=== PATIENT | male | born 1995 | race Hispanic/Latino ===

== ENCOUNTER 2017-03-28 03:27 | Inpatient (IN) | payer MEDICAID, OTHER ==
[~2017-03-28] VITALS: Ht 154.9 cm; Wt 47.7 kg
[2017-03-28] MEDS ORDERED: Magnesium Hydroxide 10 mL Oral Concentration PO PRN (10:45)
[2017-03-28] MEDS ORDERED: Alum-Mag Hydrox-Simeth 30 mL Suspension PO PRN (10:45)
[2017-03-28] MEDS ORDERED: Benzocaine-Menthol Lozenge 2/Pkg PO PRN (10:45)
[2017-03-28] MEDS: OLANZapine Zydis ODT 5 mg Tablet PO PRN (13:06)
[2017-03-28] MEDS: hydrOXYzine Pamoate 25 mg Capsule PO PRN (13:06)
--- NOTE | 2017-03-28 15:12 | NUR ---
Admit Note Involuntary admit arrived from [facility] by ambulance @ 1021. Detained as GD, DO; refer to usp paperwork. Upon arrival pt presented w/ a constricted & guarded affect. He signed all admission paperwork. He denied thoughts of harm to self or others. After arrival pt vomited yellow bile x 3. Pt showered, was unable to eat lunch. He called his mother and laid down to rest d/t not feeling well. He was offered and accepted Zyprexa Zydis 10mg po prn and Vistaril 50mg po prn @ 1306. Medication appears helpful. No further bouts of vomiting since pt laid down to rest. He has maintained behavioral control and cooperating with care. Addendum: 03/28/17 at 1744 by KARYNA BENNETT RN Pt awoke from his nap reporting he felt better. He has eaten his dinner with no more c/o N/V. Pleasant and cooperative upon interaction.
--- NOTE | 2017-03-28 15:57 | HP ---
[address] [address] HISTORY AND PHYSICAL PATIENT: IMMANUEL JOE : 1995 MR#: [id number] ADMIT: 03/28/2017 JOB ID: [id number] IDENTIFICATION OF PATIENT: The patient is a 21-year-old male from [place]. The patient was admitted under PARIS status due to concerns of grave disability and significant manifestations of psychoses. CHIEF COMPLAINT: "My mother and father were concerned." This per patient report. HISTORY OF PRESENT ILLNESS: As stated above, the patient is a 21-year-old male who reportedly was brought to the emergency department in [place] with significant concern of increasing paranoia, delusions of reference including a belief that someone is controlling him. Per report, the patient identified that he has been smoking 1-2 bowls of marijuana per day over the past month. Prior to such, he was using one pipe per day. He indicated that he does not believe that he is experiencing auditory hallucinations but he appeared to be responding to internal stimulus throughout the examination. He was quite sedate and had received doses of Zyprexa. The patient reportedly has been hospitalized in the past in October of 2015 at [facility]. Records will be sent for. There was concern through charting documentation through [facility] of the patient's near attempts of elopement and staff have been informed of such. He is currently not connected with services. He indicated that he was prescribed medications at [facility] but cannot remember the name. In review of depression, the patient denied any evidence of suicidal ideation, intent or plan. There was no evidence of significant concerns of complaints of anergia, anhedonia. Per parent report and affidavit, he had recently lost his job, got fired from working at the [employer]. 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 He reportedly did graduate from high school, per his own report with no collegiate involvement and is currently living at home. PAST MEDICAL HISTORY: Substantial for no allergies to medications. Medications of current include none. Medical history is none. He refused a physical examination. I reviewed the documentation from [place] emergency department and agree with findings. PAST PSYCHIATRIC HISTORY: Substantial for the above information. SOCIAL HISTORY: The patient lives at home with his parents. He denies any long-term relationship. He reportedly admits to the above drug usage. He denies any alcohol usage. There is no noted history of trauma. FAMILY HISTORY: Unknown. DEVELOPMENT HISTORY: As noted above. MENTAL STATUS EXAMINATION: General appearance: The patient is quite sedate. He did interview with myself and medical student and employment case manager. He makes intermittent eye contact. His speech is slow and shows some difficulties with articulation difficulties due to extreme sedation. His mood is neutral. Affect was congruent. His thought process showed no evidence of racing thoughts. He is quite disorganized and needs redirection throughout. His thought content: There was no evidence of suicidal or homicidal ideation. No evidence of paranoia. He reportedly has evidence of delusions of reference and hallucinations per family report. Mental grasp: He was alert, oriented to time and place. Attention and concentration intact. Memory intact in the short term, halfway, recent. Insight and judgment are poor. IMPRESSIONS: AXIS I 1. Psychoses, not otherwise specified. 2. Rule out substance induced psychoses. 3. Cannabis use disorder. AXIS II Deferred. AXIS III None. AXIS IV Stressors are noted for disturbance of coping, polysubstance use disorder. AXIS V Global assessment of functioning of current 30. PLANS: 1. Recommendations for introductions of Zyprexa Zydis 10 mg q.h.s. as well as p.r.n.'s q.6 hours for agitation. 2. Introduction of Vistaril 50 mg q.4 hours p.r.n. for anxiety. 3. Recommendations for collaboration with family members obtaining records from [facility], and long-term discharge planning to follow. JOHNATHAN
[2017-03-28] MEDS ORDERED: [UNRECOGNIZED DRUG - REMARK] (17:50)
--- NOTE | 2017-03-28 18:11 | NUR ---
S Day Shift Pt admitted to the unit at approx 10:21. Pt completed the admission process without incident. Pt maintained behavioral control throughout the shift. Pt affect appears mostly flat, blunt. Pt spends most of the shift resting/sleeping in his room. Pt became queasy immediately following admission, at which point pt vomited in his room. Pt is focused on DC. Pt is not social with peers when active on the unit. Pt attended lunch and dinner, but declined to eat more than a few bites of each meal.
--- NOTE | 2017-03-28 19:57 | NUR ---
Pug Mill Operator Helper/Counselor: S/O: Patient was very drowsy during interview. Patient denies S/I and H/I. He also denies auditory and visual hallucinations. A: Patient is cooperative, distractible, disorganized, poor insight, poor judgment. P: Follow the care plan, coordinate with out-patient providers.
[2017-03-28] MEDS: OLANZapine Zydis ODT 5 mg Tablet PO SCH ×2 (21:00→21:08)
--- NOTE | 2017-03-29 04:36 | NUR ---
Nursing Noc Pt isolative to room this shift, appears relaxed and attentive to staff. Noted to be resting throughout this shift. Continuing to monitor mood/behavior, emotional state and medication effectiveness. Q15 minute safety checks, Pt resting in room with door wide open and bathroom light on. Zero obvious distress this shift. BHCP
[2017-03-29] MEDS: OLANZapine Zydis ODT 5 mg Tablet PO PRN (11:38)
--- NOTE | 2017-03-29 12:26 | NUR ---
Nursing Note [id number] Behavior S/O: Conversation tracking clear & organized with normal rate & rhythm. Pt states he is "okay." Pt pacing in carlos requesting to see the doctor about discharge. He endorses anxiety at a "4" on a scale of 1-10/10 the worst. He requested a repeat of "something for anxiety...10 mg." Zyprexa 10 mg given at 1135 with good effect. Pt denies audio hallucinations. Pleasant & cooperative with staff & peers. Pt out on unit for shower. Minimal interaction with peers. Pt participating in activities with MHA. Pt reports he would like to go home. A: Pt appears more anxious than he states he is. P: Provide supportive environment. Monitor medications & effects.
--- NOTE | 2017-03-29 12:29 | PROG NOTE ---
[address] [address] PROGRESS NOTE PATIENT: IMMANUEL JOE : 1995 MR#: [id number] ADMIT: 03/28/2017 JOB ID: [id number] DATE: 03/29/2017 CHIEF COMPLAINT: "I slept well." This per patient report. HISTORY OF PRESENT ILLNESS: As stated above, the patient identified that he did have a positive night's sleep and per nursing staff slept through the night. On interview the patient does appear to be mildly anxious with noted hyperkinesis and periodic manifestation of motor tics. The patient openly identified that what occurred prior to hospitalization was not intentional. He indicated that he did not intend to break his family's TV or washer. He noted that he is currently using marijuana excessively, 1-2 g per day, and noted that he is willing to discontinue his usage. I have discussed with the patient that we will be placing calls with family members. He did make reference to attendance through an IOP program in [place] in the past, indicating that he was attending drug and alcohol counseling through that site for court-ordered intervention. Clarification will follow. OBJECTIVE: On mental status exam, he was bright, cooperative, interactive. He maintained good eye contact throughout. His speech was of normal tone, frequency, and volume. His mood was neutral. Affect was congruent. His thought process showed no evidence of random flight of ideas, loose or disconnected thinking. Thought content: He appears to be somewhat distracted on interview. He denies any suicidal or homicidal ideation. He was mildly paranoid to some degree. He denied any evidence of hallucinations or delusions. He was alert, oriented to time and place. His attention and concentration intact. Memory intact in the short term, intermediate manager, and recent. Insight and judgment are fair. PHYSICAL EXAMINATION: Vital signs of current are unlisted. CURRENT MEDICATIONS: Include Zyprexa Zydis 10 mg q.h.s. which he refused last evening. Vistaril 50 mg q.4 h. p.r.n. and Zyprexa Zydis that he took earlier this morning 10 mg. ASSESSMENT: [place] I: 1. Psychosis, not otherwise specified. 2. Marijuana use disorder. 3. Substance-induced psychosis. [place] II: Deferred. [place] III: None. [place] IV: Stressors are noted for chronic substance use, disturbance of behavior. [place] V: Global Assessment of Functioning of current 35. PLAN: 1. Recommendations for probable discharge. I do not see grounds to petition for continued stay. 2. Recommendations for continuation of Zyprexa 10 mg q.6 p.r.n. and 10 mg q.h.s. 3. Clarification for aftercare followup with family members to follow. Records have been sent from [facility] as well. JOHNATHAN
[2017-03-29 14:46] VITALS: BP 97/54; PULSE 79; RESP 18
[2017-03-29] MEDS: hydrOXYzine Pamoate 25 mg Capsule PO PRN (21:24)
[2017-03-29] MEDS: OLANZapine Zydis ODT 5 mg Tablet PO SCH (21:24)
--- NOTE | 2017-03-29 23:10 | NUR ---
nursing: pt has been out on the unit , interacting with peers, pleasant and cooperative. His appetite is good; He is logical and linear in our interactions.
--- NOTE | 2017-03-30 05:04 | NUR ---
Nursing Noc Pt pleasant on approach but guarded with assessment. Denies A/V hallucinations,anxiety or depression. Pt does report a twitching like discomfort noted to forearms while trying to sleep, medicated with Tylenol and patient back to sleep. Pt presents nervous anxiety during interview with noted latent thoughts r/t discharge. Reports he wants to discharge however. Continuing to monitor mood behavior and emotional state. Q15 minute safety checks throughout the night. CP
[2017-03-30 10:00] VITALS: BP 128/72; PULSE 71; RESP 16
--- NOTE | 2017-03-30 11:35 | PCM.PNPSY ---
Subjective Date of Service Mar 30, 2017 Subjective I spent 30 minutes both reviewing treatment plan with our clinical team, interviewing the patient and providing supportive/educational psychotherapy. I spent more than 50% of the time counseling the patient. I reviewed the treatment plan with the him and discussed options available including the potential risks, benefits and side effects. Anuj reports a marked improvement in thought organization and mood stability. Staff reports that he has been active and participating well in one-to-one unit and group activities. He slept 3 hours and denies depression manic or psychotic symptoms review. He denies medication side effects. He was able to identify his medications and what they were used to treat. Current Medications Current Medications Olanzapine 10 mg HS PO Last administered on 03/29/17t 21:24; Admin Dose 10 MG; Start 03/28/17 at 21:00 Mental Status Exam Appearance: Neat/well groomed Attitude: Pleasant, Cooperative Behavior: Distractible Affect: Flat Mood: Anxious Thought Process/Associations: Goal Directed, Other Speech Production: Normal Speech Rate: Lags/Latency Speech Articulation: Normal Thought Content: Other (rationalizing to justify recent bizarre behavior) Danger to Self/Suicidal Ideati: None Danger to Others: None Delusions: Paranoid Hallucinations: Other (at times appears to be responding to internal stimuli) Consciousness: Alert Orientation: Person, Place, Date, Situation Memory: Grossly Intact Estimate Intellectual Function: Above Average Basis for IQ estimate: Awareness current events, Word use/vocabulary, Educational history, Employment history Attention/Concentration & Cogn: Grossly Intact Insight: Limited Judgement: Limited Mental Health Plan Anuj is a 21-year-old male who reportedly was brought to the emergency department in [place] with significant concern of increasing paranoia, delusions of reference including a belief that someone is controlling him. Per report, the patient identified that he has been smoking 1-2 bowls of marijuana per day over the past month. Prior to such, he was using one pipe per day. He indicated that he does not believe that he is experiencing auditory hallucinations but he appeared to be responding to internal stimulus throughout the examination. He was quite sedate and had received doses of Zyprexa. The patient reportedly has been hospitalized in the past in October of 2015 at [facility]. Records will be sent for. There was concern through charting documentation through [facility] of the patient's near attempts of elopement and staff have been informed of such. He is currently not connected with services. Here in the unit he is been active in participating well. I am changing him from Zyprexa to Abilify today And he agreed to sign in on a voluntary basis as we initiate this medication trial. [place] I: 1. Psychosis, not otherwise specified. 2. Marijuana use disorder. 3. Substance-induced psychosis. [place] II: Deferred. [place] III: None. [place] IV: Stressors are noted for chronic substance use, disturbance of behavior. [place] V: Global Assessment of Functioning of current 35. Treatments Patient is being provided with a high degree of safety through our unit structure and active adult engagement provided by our mental health professionals, mental health technicians, psychiatric nurses and myself. We are focusing on developing improved coping skills and identifying stressors that may have led to current episode. We will attempt to: * Integrate into therapeutic groups, milieu and individual therapy. * Maintain in a closely monitored and structured unit * Provide low-stimulation environment * Obtain collateral data to assist in treatment planning * Assess degree of lability of affect and impulse control * Complete safety plan * Decrease frequency of relapse and need for re-hospitalization * Denies thoughts of harm to self and/or others * Establish a consistent sleep pattern * Medication effective in stabilization of mood and/or thought process * Reduce the risk of imminent harm to self and/or others by providing a safe environment * Tolerates medication without side effects * Patient will be on the following psychiatric medications: Discontinue Zyprexa (patient's family stated that this was a medication that was not effective in the past. Patient's family reports Abilify has significantly improved his condition. Patient's family report that once he was off his 90 day LRA in December 2015 his refused to take any medications). Abilify 15 mg every morning Education: Educate patient about recreational drug use as an etiology Patient's legal status Patient initially on 72 hour involuntary treatment hold. He was converted to a voluntary basis today. Anticipated number of hospital days to achieve above goals: If patient continues to improve would anticipate discharge on Sunday. Disposition: Home. Fransisco Acosta MD Mar 30, 2017 11:35
--- NOTE | 2017-03-30 12:50 | NUR ---
Nursing Note [id number] Behavior S/O: Pt discussed with psychiatrist earlier about changing his status to voluntary. Pt told me he agreed to stay until Sunday, but stated he wanted to go home before that. He couldn't explain why the psychiatrist wanted him to stay or why he wanted to leave. Pt signed voluntary admission papers. Pt keeps to his room most of the day except for meals. Good appetite. Little interaction seen between pt & peers. Pt appears timid when talking to him. He denies any mental health problems & d/n know why he is here. A: Poor insight into mental illness. P: Provide supportive environment. Monitor medications & effects.
--- NOTE | 2017-03-30 17:58 | NUR ---
[facility] Day Shift Pt maintained behavioral control throughout the shift. Pt affect appears mostly flat/blunt, but is brighter when engaged with staff or peers. Pt is active on the unit throughout the shift and in appropriate with staff and peers. Pt spends most of the shift engaging in unit activities or resting in his bed. Pt occasionally appears mildly internally preoccupied. Pt continues to be focused on DC. Pt attended all meals and ate approx 50-60% of all meals.
--- NOTE | 2017-03-30 20:15 | NUR ---
Analytical Chemist/Counselor: S:"Did you talk to my mother?" O: Patient only slept 3 hours last night. Patient denies S/I and H/I. He also denies auditory and visual hallucinations. Depression is 0/10 and anxiety is 0/10. This loan underwriter spoke with patient's mother, at request of patient. Patient's mother requested an update on patient. A: Patient is cooperative, pleasant, distractible, flat affect, anxious, paranoid, limited insight, limited judgment. P: Follow the care plan, coordinate with out-patient providers.
--- NOTE | 2017-03-30 21:44 | NUR ---
[id number]. nurs. Pt out on unit to participate in grp activities , has quiet manner, asks staff to met ADL needs. Pt has denied having any pxs and has no verbalized insight re. being in the [facility]. Pt's father visited pt in [place]. No prns given. No observed response to internal stim. or delusional ideation expressed. P:CNCP
--- NOTE | 2017-03-31 05:19 | NUR ---
nursing, nights, 11-7 s/o- has appeared to sleep after 2215 to 2300. slept 2345 to 0215 and after 0245. assessed q 15 minutes. a- interupted sleep, no apparent distress. p- monitor behavior/emotional state, quality, times and amount of sleep, use and effect of medication. domonique
[2017-03-31 11:10] VITALS: BP 123/74; PULSE 75; RESP 16
--- NOTE | 2017-03-31 14:30 | NUR ---
Nursing Note [id number] Behavior S/O: Pt has good appetite. Conversation tracking clear & organized, but superficial. Pt states he is "fine" and doesn't elaborate. Pt out of room for meals and brief periods of time. Pleasant & cooperative with care. Denies any problems. A: No psychotic sx noted. P: Provide supportive environment. Monitor medications & effects.
--- NOTE | 2017-03-31 18:41 | PCM.PNPSY ---
Subjective Date of Service Mar 31, 2017 Subjective The patient reports that he is doing "pretty good" and that he is trying to "better myself... Not acting like I used to." He reports that he previously had broken a television set due to restlessness or possibly akathisia. The patient reports "I think I threw up" for unclear reasons and has difficulty stating under what context this. But he states that he believes that this happened prior to coming to the [facility]. He denies side effects from current medications. Sleep: 7+ hours, "good" Appetite: "Okay" Suicidal and homicidal ideation: Denies Auditory hallucinations: Denies Visual hallucinations: Denies Other Psychotic Symptoms: Denies. Thought Insertion, thought withdrawal, thought broadcasting, ideas of reference, perceptual distortions Anxiety: "Good" Depression:"Good" Current Medications Current Medications Aripiprazole 15 mg DAILY PO Last administered on 03/31/17t 08:37; Admin Dose 15 MG; Start 03/30/17 at 12:00 Mental Status Exam Vital Signs Vital Signs Date Time Temp Pulse Resp B/P Pulse Ox O2 Delivery O2 Flow Rate FiO2 03/31/17 11:10 36.6 75 16 123/74 Appearance: Neat/well groomed Attitude: Pleasant, Cooperative Behavior: Distractible Affect: Flat Mood: Anxious Thought Process/Associations: Goal Directed, Other (difficulty tracking questions and conversation) Speech Production: Paucity Speech Rate: Lags/Latency Speech Articulation: Normal Thought Content: Other (rationalizing to justify recent bizarre behavior) Danger to Self/Suicidal Ideati: None Danger to Others: None Delusions: Paranoid (mild) Hallucinations: Other (appears distracted by internal stimuli) Consciousness: Alert Orientation: Person, Place, Date, Situation Memory: Grossly Intact Estimate Intellectual Function: Average Basis for IQ estimate: Awareness current events, Word use/vocabulary, Educational history Attention/Concentration & Cogn: Impaired Insight: Limited Judgement: Limited Mental Health Plan Anuj is a 21-year-old male who reportedly was brought to the emergency department in [place] with significant concern of increasing paranoia, delusions and ideas of reference including a belief that someone was controlling him. Per report, the patient identified that he has been smoking 1- 2 bowls of marijuana per day over the past month. Prior to such, he was using one pipe per day. He indicated that he does not believe that he is experiencing auditory hallucinations but he appeared to be responding to internal stimulus throughout the examination. He was quite sedate and had received doses of Zyprexa. The patient reportedly had been hospitalized in the past in October of 2015 at [facility]. Records were requested but have not arrived. There was concern in the documentation at [facility] of the patient's near attempts of elopement and staff have been informed of such. He is currently not connected with services. The patient has been active on the unit and interacting with select peers. Per recommendation of family, olanzapine has been changed to aripiprazole which is reportedly been more effective. The patient's family reports the patient has typically done better when on less restrictive order as they reported that once he was off his 90 day LRA in December 2015 his refused to take any medications. [place] I: 1. Psychosis, not otherwise specified. 2. Marijuana use disorder. 3. Substance-induced psychosis. [place] II: Deferred. [place] III: None. [place] IV: Stressors are noted for chronic substance use, disturbance of behavior. [place] V: Global Assessment of Functioning of current 35. Treatments 1. The patient is admitted to the inpatient unit and will be provided a safe and secure environment. 2. The patient is denying current active suicidality and is not in need of a one-to-one at this time. He is agreeing to notify us should he have any acute suicidal or homicidal thoughts. 3. The patient is encouraged to participate with group and milieu activities. 4. The patient will be seen by the treatment team on a daily basis to assess symptoms, side effects and response to treatment. 5. The patient will be continued on aripiprazole 15mg po daily. 6. Anticipated length of stay is 2-3 days. Brett Hay MD Mar 31, 2017 18:41 Brett Hay MD Mar 31, 2017 18:41 Patient's legal status Patient initially on 72 hour involuntary treatment hold. He was converted to a voluntary basis today. Anticipated number of hospital days to achieve above goals: If patient continues to improve would anticipate discharge on Sunday. Disposition: Home. Brett Hay MD Mar 31, 2017 18:41
--- NOTE | 2017-03-31 21:27 | NUR ---
OBSERVATIONS 0900 TO 2130 Pt was pleasant and cooperative with staff, social and appropriate with peers. Pt was active and participatory on the unit but was isolative for much of the morning. Notable behavior: when this MHA was chatting with the pt, was unable to hear, stepped closer and apologized for not understanding what pt said, pt appeared frightened and quickly withdrew physically until he realized he was in no danger. Pt appeared tearful at times due to a miscommunication regarding his discharge date but during evening wrap-up stated that overall his day was a good one and rated his mood at a 6/10. Maintained Q15 checks for safety as directed.
--- NOTE | 2017-04-01 06:19 | NUR ---
Nursing Note Health Administrator 7pm to 7am Pt visible on unit, interacting and playing cards with peers. Pts thoughts were organized, linear and logical, mood brighter. Pt handed phone to RN and asked mother be informed of medications pt is taking. Pt went to bed at approx. 2130 and slept through the night. Monitored pt. q 15 minute checks for safety, location and accountability
[2017-04-01 08:05] VITALS: BP 119/72; PULSE 72; RESP 16
[2017-04-01] MEDS ORDERED: ARIP5TAB5 PO (16:54)
--- NOTE | 2017-04-01 16:54 | PCM.DIMED ---
Discharge Instructions Date of Service Apr 01, 2017 Dates of Hospitalization Mar 28, 2017 at 10:20 Discharge Diagnosis Discharge Diagnosis [place] I: 1. Psychosis, not otherwise specified. 2. Marijuana use disorder. [place] II: Deferred. [place] III: None. [place] IV: Stressors are noted for chronic substance use, disturbance of behavior. [place] V: Global Assessment of Functioning of current 45. Test Results Test Results CMP Test 03/28/17 11:10 Thyroid Stimulating Hormone (TSH) 2.150uIU/mL Diet Discharge Diet: No restrictions Activity Discharge Activity: No restrictions Patient Instructions Patient Instructions Should you have any thoughts of harming yourself or others, please call the crisis line, your provider, 911, or go to the nearest Emergency Department. Do not change or discontinue your medications without discussing with your provider. You have been given a prescription for 30 days supply of your new medication Follow-up plan Counselor Brandee Pierce 04/02/[address] [place] [id number] Brett Hay MD Apr 01, 2017 16:54
--- NOTE | 2017-04-01 18:05 | NUR ---
Nursing Discharge Note: Patient cooperative with discharge process. Acknowledges understanding of d/c instructions and has a copy with them upon leaving unit at 1800. Belongings accounted for and with patient. Prescription given to patient to be filled at patient's pharmacy at [facility]. Patient denies harmful thoughts and hallucinations at this time. Voices appreciation of staff assistance in his stay here.
--- NOTE | 2017-04-01 19:45 | PCM.DC.MED ---
Discharge Summary Date of Service Apr 01, 2017 Dates of Hospitalization Date of Hospital Admission Mar 28, 2017 at 10:20 Date of Discharge: Apr 01, 2017 Providers: Admitting Physician: Fransisco Acosta MD Primary Care Physician: Jennifer Attending Physician: Fransisco Acosta MD Diagnosis at Time of Discharge Diagnosis at Time of Discharge [place] I: 1. Psychosis, not otherwise specified. 2. Marijuana use disorder. [place] II: Deferred. [place] III: None. [place] IV: Stressors are noted for chronic substance use, disturbance of behavior. [place] V: Global Assessment of Functioning of current 45. Brief History Per Dr. Curiel initial H&P on 03/28/2017: IDENTIFICATION OF PATIENT: The patient is a 21-year-old male from [place]. The patient was admitted under [place] status due to concerns of grave disability and significant manifestations of psychoses. CHIEF COMPLAINT: "My mother and father were concerned." This per patient report. HISTORY OF PRESENT ILLNESS: As stated above, the patient is a 21-year-old male who reportedly was brought to the emergency department in [place] with significant concern of increasing paranoia, delusions of reference including a belief that someone is controlling him. Per report, the patient identified that he has been smoking 1-2 bowls of marijuana per day over the past month. Prior to such, he was using one pipe per day. He indicated that he does not believe that he is experiencing auditory hallucinations but he appeared to be responding to internal stimulus throughout the examination. He was quite sedate and had received doses of Zyprexa. The patient reportedly has been hospitalized in the past in October of 2015 at [facility]. Records will be sent for. There was concern through charting documentation through [facility] of the patient's near attempts of elopement and staff have been informed of such. He is currently not connected with services. He indicated that he was prescribed medications at [facility] but cannot remember the name. In review of depression, the patient denied any evidence of suicidal ideation, intent or plan. There was no evidence of significant concerns of complaints of anergia, anhedonia. Per parent report and affidavit, he had recently lost his job, got fired from working at the [employer]. 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 He reportedly did graduate from high school, per his own report with no collegiate involvement and is currently living at home. Hospital Course The patient was admitted to the unit and initially placed on olanzapine 10 mg nightly. Subsequently it was learned that the patient had previously done poorly on this medication and so was switched to aripiprazole 15 mg daily. The patient appeared to respond to this medication and was cooperative and fairly alert on the unit. He did demonstrate significant distractibility and difficulty tracking questions. Although he explicitly denied having auditory hallucinations or delusions he appeared to be responding to internal stimuli and required multiple rephrasing of questions before he would understand. He was requesting discharge on Sunday though he had no outpatient follow-up and had difficulty comprehending this information and kept confusing it with his assessment by Dr. Acosta on Sunday. The patient's family was able to set up outpatient appointments for him and as a significant distance away they were agreeable to taking him home on Sunday. He denied side effects to medications. At the time of discharge, the patient was reporting his mood as "I think I am fine." Sleep was reported as good with 6.75 hours. Appetite was reported as "good". His anxiety was reported as "good" and depression as 0/10. He denied auditory or visual hallucinations and any thought, intent, or plan harming himself or others. He denied medication side effects. There was no evidence of dystonia or cogwheeling on physical examination. Exam Vital Signs (Last) Date Time Temp Pulse Resp B/P Pulse Ox O2 Delivery O2 Flow Rate FiO2 04/01/17 08:05 35.2 72 16 119/72 Exam Discharge Mental Status Exam Appearance: Neat/well groomed Attitude: Pleasant, Cooperative Behavior: Distractible Affect: Flat Mood: Anxious Thought Process/Associations: Goal Directed, Other (difficulty tracking questions and conversation) Speech Production: Paucity Speech Rate: Lags/Latency Speech Articulation: Normal Thought Content: Other (rationalizing to justify recent bizarre behavior) Danger to Self/Suicidal Ideation: None Danger to Others: None Delusions: Paranoid (mild) Hallucinations: Other (appears distracted by internal stimuli) Consciousness: Alert Orientation: Person, Place, Date, Situation Memory: Grossly Intact Estimate Intellectual Function: Average Basis for IQ estimate: Awareness current events, Word use/vocabulary, Educational history Attention/Concentration & Cognition: Impaired Insight: Limited Judgement: Limited Test 03/28/17 11:10 Thyroid Stimulating Hormone (TSH) 2.150uIU/mL (0.450-4.500) Discharge Medications Discharge Medications Aripiprazole (Abilify) 5 Mg Tablet 15 MG PO DAILY Prescribed by: CHAUNCEY HAY MD Miscellaneous Medications ([NO current home meds]) (Reported) Followup Plan Disposition: The patient was requesting discharge and the family was willing to transport him back to the family home. The patient verbally consented to take the prescribed medications. The patient verbally expressed understanding of the risks, benefits, alternative treatment options, and risks of not taking the prescribed medication. The patient verbally expressed understanding of the medication instructions, that he will adhere to the prescribed medication, and that he will go to all aftercare scheduled appointments. Follow-up plan Counselor Brandee Pierce 04/02/[address] [place] [id number] Discharge Diet: No restrictions Discharge Activity: No restrictions Patient Instructions Should you have any thoughts of harming yourself or others, please call the crisis line, your provider, 911, or go to the nearest Emergency Department. Do not change or discontinue your medications without discussing with your provider. You have been given a prescription for 30 days supply of your new medication Chauncey Hay MD Apr 01, 2017 19:45
== END 2017-04-01 18:00 | disposition home or self-care (01) | DRG 885 ==
LOC: MHC 10:20
PROVIDERS: ADMIT Psychiatry & Neurology Psychiatry; ATTEND Psychiatry & Neurology Psychiatry
DX: F29 Unspecified psychosis not due to a substance or known physiological condition (principal); F12.90 Cannabis use, unspecified, uncomplicated